=== PATIENT | male | born 1960 | race Caucasian/White ===

== ENCOUNTER 2021-12-16 16:07 | Emergency (ER) | payer OTHER ==
[2021-12-16 16:27] VITALS: BP 162/103; PULSE 82; RESP 16; TEMP 98.4
--- NOTE | 2021-12-16 17:22 | CT ---
EXAMINATION TYPE: CT brain samantha hughes DATE OF EXAM: 12/16/2021 COMPARISON: None available HISTORY: Head/neck pain, car trunk hit pt in the head. No LOC, c/o neck pain and headache. CT DLP: 1587 mGycm Automated exposure control for dose reduction was used. TECHNIQUE: CT scan of the head and cervical spine are performed without contrast. 2-D sagittal and co carolyn reformats were obtained. FINDINGS: Head CT: There is no acute intracranial hemorrhage, mass effect, or midline shift identified. The ventricles and sulci are within normal limits in size. No CT evidence of acute large vessel territorial ischemic changes. Mild subcutaneous soft tissue inflammation along the left occiput. Calvarium appears unremarkable. Th e globes are intact and the visualized sinuses are clear. C-spine CT: Cervical vertebral body heights are maintained. Mild dextroscoliotic curvature of the cervical spine. No acute fracture or traumatic subluxation. Moderate degenerative disc changes at C5-6 and C6-7 with spondylosis and disc height loss. Moderate m ultilevel facet arthropathy most pronounced in the upper cervical spine on the left at the levels of C2-3 and C3-4, which contributes to moderate to severe left neural foraminal narrowing at the level o f C3-4. No prevertebral soft tissue swelling. Paraspinal soft tissues appear unremarkable. IMPRESSION: 1. No acute intracranial process. 2. No acute fracture or traumatic subluxation of the cervical spine. 3. Moderate multilevel degenerative changes of the cervical spine. 4. Mild subcutaneous soft tissue inflammation of the left occiput.
[2021-12-16] MEDS ORDERED: ACETAMINOPHEN TAB 500 MG TAB PO STA (17:49)
--- NOTE | 2021-12-16 17:58 | ED ---
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 Patient states he was checking the back of the trunk of someone's car when the trunk door closed on his head, hitting the back right side of his head. Patient denies any loss of consciousness. Patient denies being on any blood thinners. Patient states he did have a little bit of watering eyes after the trunk hit his head but did not experience any other symptoms. Patient states he does not have a mild dull headache rating it 3/10 to the right posterior side of his head. Patient denies any visual changes, lightheadedness, dizziness. He denies any chest pain, shortness of breath, abdominal pain, nausea, vomiting, change in bowel or bladder, change in appetite. Patient states he does have a little bit of pain in his neck when looking side to side. - Related Data Allergies Allergy/AdvReac Type Severity Reaction Status Date / Time No Known Allergies Allergy Verified 12/16/21 16:27 Review of Systems ROS Statement: Those systems with pertinent positive or pertinent negative responses have been documented in the HPI. ROS Other: All systems not noted in ROS Statement are negative. Past Medical History Past Medical History: Hyperlipidemia, Hypertension Additional Past Medical History / Comment(s): back injury History of Any Multi-Drug Resistant Organisms: None Reported Past Surgical History: No Surgical Hx Reported Past Psychological History: No Psychological Hx Reported Smoking Status: Never smoker Past Alcohol Use History: None Reported Past Drug Use History: None Reported General Exam Limitations: no limitations General appearance: alert, in no apparent distress Head exam: Present: atraumatic, normocephalic, normal inspection Eye exam: Present: normal appearance, PERRL, EOMI. Absent: scleral icterus, c onjunctival injection, periorbital swelling Pupils: Present: normal accommodation ENT exam: Present: normal exam, mucous membranes moist Neck exam: Present: normal inspection, tenderness (Mild cervical paraspinal tenderness to deep palpation. No spinal tenderness present), full ROM. Absent: meningismus, lymphadenopathy Respiratory exam: Present: normal lung sounds bilaterally. Absent: respiratory distress, wheezes, rales, rhonchi, stridor, chest wall tenderness, decreased breath sounds Cardiovascular Exam: Present: regular rate, normal rhythm, normal heart sounds. Absent: systolic murmur, diastolic murmur, rubs, gallop, clicks GI/Abdominal exam: Present: soft, normal bowel sounds. Absent: distended, tenderness, guarding, rebound, rigid Extremities exam: Present: normal inspection, full ROM, normal capillary refill. Absent: tenderness, pedal edema, joint swelling, calf tenderness Back exam: Present: full ROM. Absent: paraspinal tenderness, vertebral tenderness Neurological exam: Present: alert, oriented X3, CN II-XII intact, normal gait Psychiatric exam: Present: normal affect, normal mood Skin exam: Present: warm, dry, intact, normal color. Absent: rash Course Vital Signs 12/16/21 16:23 Temperature 98.4 F Pulse Rate 82 Respiratory 16 Rate Blood Pressure 162/103 O2 Sat by Pulse 95 Oximetry Medical Decision Making - Medical Decision Making This 61-year-old male presents emergency Department after the car trunk door hit his head earlier today at work. Computed tomography scan brain and C-spine without contrast impression: No acute intracranial process. No acute fracture o r traumatic subluxation of the cervical spine. Moderate multilevel degenerative changes of the cervical spine. Mild subcutaneous soft tissue inflammation of the left occiput. Patient given Tylenol as he said he does have a mild dull headache 3/10 to the right posterior side of his head where the car door hit him. Patient instructed to follow up with his primary care provider next 1-2 days. Patient instructed to take Tylenol for pain relief as directed. Strict return precautions were discussed. Patient verbally agreed to plan. Patient sent home in stable condition. Case discussed in detail with my attending, . Disposition Clinical Impression: Closed head injury Disposition: HOME SELF-CARE Condition: Stable Instructions (If sedation given, give patient instructions): Concussion (ED), Head Injury (ED) Additional Instructions: Please follow-up with your primary care provider next 1-2 days. Take Tylenol for headache relief as directed. Return to the emergency department with any new, worsening, or concerning symptoms. Is patient prescribed a controlled substance at d/c from ED?: No Referrals: None,Stated [Primary Care Provider] - 1-2 days Time of Disposition: 17:58
== END 2021-12-16 18:18 | disposition home or self-care (01) ==
LOC: EC 16:07
DX: S09.90XA Unspecified injury of head, initial encounter (principal); I10 Essential (primary) hypertension; E78.5 Hyperlipidemia, unspecified; V03.10XA Pedestrian on foot injured in collision with car, pick-up truck or van in traffic accident, initial encounter
CPT/HCPCS: 70450; 72125